=== PATIENT | male | born 1970 | race Caucasian/White ===

== ENCOUNTER 2020-11-07 18:48 | Emergency (ER) | payer OTHER ==
[~2020-11-07] VITALS: Ht 190.5 cm; Wt 113.4 kg
[~2020-11-07 18:48] MED LIST: AZIT250 PO; BUSP15 PO; PANT20 PO; QUET100 PO
== END 2020-11-07 20:52 | disposition home or self-care (01) ==
LOC: ER 18:48
DX: S51.812A Laceration without foreign body of left forearm, initial encounter (principal); Z79.899 Other long term (current) drug therapy; Z23 Encounter for immunization; W22.8XXA Striking against or struck by other objects, initial encounter
CPT/HCPCS: 12002; 73090; 90471; 90714; 99283-25

== ENCOUNTER 2022-02-26 11:09 | Emergency (ER) | payer OTHER ==
[~2022-02-26] VITALS: Ht 188 cm; Wt 113.4 kg
[2022-02-26] MEDS ORDERED: CLON.2 (11:23)
[2022-02-26] MEDS ORDERED: CLONAZEPAM1 MG PO (11:23)
[2022-02-26] MEDS ORDERED: SEROQUEL100 MG PO (11:23)
[2022-02-26] MEDS ORDERED: FLUVOXAMINE MA100 M3 PO (11:23)
[2022-02-26] MEDS ORDERED: CATAPRES0.1 MG PO (11:26)
[2022-02-26] MEDS ORDERED: OMEP20ER PO (11:27)
== END 2022-02-26 13:05 | disposition home or self-care (01) ==
LOC: ER 11:09
DX: R45.6 Violent behavior (principal); F20.9 Schizophrenia, unspecified; H91.90 Unspecified hearing loss, unspecified ear; Z79.899 Other long term (current) drug therapy
CPT/HCPCS: 96372; 99285-25; J1200; J1630; J2060

== ENCOUNTER 2022-06-11 14:10 | Emergency (ER) | payer OTHER ==
[~2022-06-11] VITALS: Ht 182.9 cm; Wt 108.9 kg
[~2022-06-11 14:10] MED LIST changes: +CATAPRES0.1 MG PO; +CLON.2; +CLONAZEPAM1 MG PO; +FLUVOXAMINE MA100 M3 PO; +OMEP20ER PO; +SEROQUEL100 MG PO
[2022-06-11] MEDS ORDERED: Cleocin HCl150 MG PO (16:47)
[2022-06-11] MEDS ORDERED: DOCU100 PO (16:47)
== END 2022-07-11 16:51 | disposition home or self-care (01) ==
LOC: ER 14:10
DX: L02.31 Cutaneous abscess of buttock (principal); Z88.8 Allergy status to other drugs, medicaments and biological substances; Z79.899 Other long term (current) drug therapy
CPT/HCPCS: 10060; 36415; 74019; 96374-59; 99283-25; A9270; J1170

== ENCOUNTER 2023-05-24 19:22 | Emergency (ER) | payer OTHER ==
[~2023-05-24] VITALS: Ht 193 cm; Wt 99.8 kg
[~2023-05-24 19:22] MED LIST changes: +Cleocin HCl150 MG PO; +DOCU100 PO
[2023-05-24 19:58] VITALS: BP 110/67
[2023-05-24] MEDS ORDERED: CEPH500 PO (20:46)
== END 2023-05-24 21:38 | disposition home or self-care (01) ==
LOC: ER 19:22
DX: S61.306A Unspecified open wound of right little finger with damage to nail, initial encounter (principal); W22.8XXA Striking against or struck by other objects, initial encounter; Z88.8 Allergy status to other drugs, medicaments and biological substances; Z79.899 Other long term (current) drug therapy
CPT/HCPCS: 99283

== ENCOUNTER → 2024-10-02 | Outpatient (CLI) | payer OTHER ==
[~2024-10-02] MED LIST changes: +CEPH500 PO
[2024-10-02 10:03] LABS: BASOPHILS ABSOLUTE AUTO 0.03 K/mm3 (0.00-0.23); BASOPHILS PERCENT AUTO 0 % (0-2); EOSINOPHILS ABSOLUTE AUTO 0.21 K/mm3 (0.00-0.68); EOSINOPHILS PERCENT AUTO 3 % (0-6); Hematocrit 42.6 % (37.0-53.0); Hemoglobin 14.1 g/dL (13.5-17.5); IMMATURE GRAN ABSOLUTE AUTO 0.02 K/mm3 (0.00-0.10); IMMATURE GRAN PERCENT AUTO 0 % (0-1); LYMPHOCYTES ABSOLUTE AUTO 1.64 K/mm3 (0.84-5.20); LYMPHOCYTES PERCENT AUTO 23 % (21-46); MONOCYTES ABSOLUTE AUTO 0.44 K/mm3 (0.16-1.47); MONOCYTES PERCENT AUTO 6 % (4-13); Mean Corpuscular HGB 29.8 pg (26.0-34.0); Mean Corpuscular HGB Conc 33.1 g/dL (31.5-36.5); Mean Corpuscular Volume 90 fL (80-100); Mean Platelet Volume 9.4 fL (9.1-12.4); NEUTROPHILS ABSOLUTE AUTO 4.76 K/mm3 (1.96-9.15); NEUTROPHILS PERCENT AUTO 67 % (41-73); Platelet Count 275 K/mm3 (150-400); RDW Standard Deviation 39.7 fL (35.1-46.3); Red Blood Cell Count 4.73 M/mm3 (4.30-5.90)
[2024-10-02 10:26] LABS: Albumin, Blood 3.3 g/dL (3.4-5.0); Albumin/Globulin Ratio 0.8 (0.8-1.8); Bilirubin, Total 0.3 mg/dL (0.1-1.0); Bun/Creatinine Ratio 20.8 (12.0-20.0); Calcium, Blood 8.5 mg/dL (8.5-10.1); Creatinine, Blood 0.96 mg/dL (0.60-1.20); Globulin, Blood 4.1 g/dL (2.2-4.0); Potassium, Blood 3.8 mmol/L (3.5-5.5); Total Protein, Blood 7.4 g/dL (6.4-8.2)
== END ==
LOC: LAB 09:55 → LAB SHORT 09:55
PROVIDERS: Chiropractor
DX: R10.9 Unspecified abdominal pain (principal)
CPT/HCPCS: 80053; 83690; 85025